=== PATIENT | female | born 2000 | race Caucasian/White ===

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

== ENCOUNTER 2022-04-25 11:32 | Outpatient (CLI) | payer BC ==
[~2022-04-25] VITALS: Ht 167.7 cm; Wt 68.2 kg
[2022-04-25] MEDS ORDERED: LEVO1TAB7 PO (13:52)
[2022-04-25] MEDS ORDERED: MTP25TSR PO (13:52)
[2022-04-25] MEDS ORDERED: FLUO20CA42 PO (13:52)
== END 2022-04-25 13:54 | disposition home or self-care (01) ==
LOC: PREOP 11:32
PROVIDERS: ATTEND Surgery
DX: Z01.818 Encounter for other preprocedural examination (principal)